=== PATIENT | male | born 1985 | race African-American/Black ===

== ENCOUNTER 2017-07-03 11:01 | Emergency (ER) | payer SELFPAY ==
--- NOTE | 2017-07-03 12:53 | RAD ---
Indication: Rib injury. 4 views of the right ribs and PA views of the chest demonstrate no fracture. No pneumothorax is noted. IMPRESSION: No fracture of the right ribs is noted.
[2017-07-03 13:18] VITALS: BP 122/74
--- NOTE | 2017-07-03 13:24 | UC ---
Minor Trauma HPI - HPI Summary HPI Summary: Patient presents with complaints of right rib pain s/p traumatic injury that he reports occurred at work on 06/29/17 during a restraint. He states he felt a popping sensation at the time in the right lower ribs, and not has some swelling as well. If he flexed upward the bulge reduces, and when he relaxes his abdominal muscles it pops outward. He states the pain is constant was worse with movements, to touch, coughing, or strenuous activity. - History of Current Complaint Chief Complaint: UCGeneralIllness Stated Complaint: R SIDE PAIN Time Seen by Provider: 07/03/17 12:59 Hx Obtained From: Patient Onset/Duration: Sudden Onset, Lasting Days Onset Of Pain: Immediate Severity Initially: Mild Severity Currently: Moderate Pain Intensity: 6 Pain Scale Used: 0-10 Numeric Mechanism Of Injury: Blunt Trauma Aggravating Factor(s): Coughing, Deep Breaths, Movement Alleviating Factor(s): Other: - flexing forward - Risk Factors Penetrating Injury Risk Factors: Negative - Allergies/Home Medications Allergies/Adverse Reactions: Allergies Allergy/AdvReac Type Severity Reaction Status Date / Time No Known Allergies Allergy Verified 07/03/17 11:38 PMH/Surg Hx/FS Hx/Imm Hx Previously Healthy: Yes - Surgical History Surgical History: None - Family History Known Family History: Positive: Cardiac Disease, Hypertension Family History: NON CONTRIBUTORY - Social History Occupation: Employed Full-time Lives: Alone Alcohol Use: Occasionally Substance Use Type: None Smoking Status (MU): Never Smoked Tobacco Review of Systems Constitutional: Negative Skin: Negative Eyes: Negative ENT: Negative Respiratory: Negative Cardiovascular: Negative Gastrointestinal: Negative Genitourinary: Negative Motor: Negative Neurovascular: Negative Musculoskeletal: Myalgia All Other Systems Reviewed And Are Negative: Yes Physical Exam Triage Information Reviewed: Yes Appearance: Well-Appearing Vital Signs: Initial Vital Signs Temp 98.4 F 07/03/17 11:33 Pulse 72 07/03/17 11:33 Resp 18 07/03/17 11:33 BP 100/62 07/03/17 11:33 Pulse Ox 98 07/03/17 11:33 Eye Exam: Normal ENT Exam: Normal Neck exam: Normal Neck: Positive: 1 Respiratory Exam: Normal Cardiovascular Exam: Normal Abdominal Exam: Normal Musculoskeletal: Positive: Edema @ - right eight rib anterior midline. Skin Exam: Normal Minor Trauma Course/Dx - Course Course Of Treatment: Patient presents s/p traumatic injury of the right ribs five days ago, chest and rib xrays were obtained and was negative for fracture or any obvious pneumothorax. He presents clinically with a rib contusion. And I recommend NSAIDS. He was discharged home with no work restrictions, and was in stalbe condition. - Differential Dx/Diagnosis Differential Diagnosis/HQI/PQRI: Contusion(s) Provider Diagnoses: rib contusion Discharge - Discharge Plan Condition: Stable Disposition: HOME Prescriptions: Naproxen Sodium [Naproxen Sodium 220 mg] 220 mg PO BID #30 tab Patient Education Materials: Rib Contusion (ED) Referrals: No Primary Care Phys,NOPCP [Primary Care Provider] -
== END 2017-07-03 13:15 | disposition home or self-care (01) ==
LOC: UCEAST 11:01
DX: S30.1XXA Contusion of abdominal wall, initial encounter (principal); X58.XXXA Exposure to other specified factors, initial encounter; Y92.9 Unspecified place or not applicable; Y99.0 Civilian activity done for income or pay
CPT/HCPCS: 99212; G0463

== ENCOUNTER 2017-09-22 09:25 | Emergency (ER) | payer BC ==
[2017-09-22 09:49] VITALS: BP 132/63
--- NOTE | 2017-09-22 10:57 | UC ---
Upper Extremity HPI - HPI Summary HPI Summary: Pt presents with two complaints 1) Chronic right neck/shoulder pain. He tells me that about 2 years ago he strained his right shoulder/neck area while lifting something at work. When it gets cold outside the muscle will tighten and cause him pain. He remains active and tells me he does 100 pull ups a day without difficulty. Denies headache, numbness, tingling, dizziness, or recent injury. He is quite frustrated because one time "they" made him get an x ray here and it wasn't covered by his insurance and he was forced to pay over $100 out of pocket. He says that he has been seen here for this multiple times and everytime he gets a muscle relaxer that helps, but is unsure of the name. 2) For the past 2 days he has had a ST and a cough. He has not tried anything OTC. Denies fever, chills, sinus symptoms, SOB, chest pain, abdominal pain, N/V/ D/C - History of Current Complaint Chief Complaint: UCUpperExtremity Stated Complaint: SHOULDER PAIN AND COLD Time Seen by Provider: 09/22/17 10:57 Hx Obtained From: Patient Onset/Duration: Gradual Onset Severity Initially: Moderate Severity Currently: Moderate Pain Intensity: 6 Pain Scale Used: 0-10 Numeric Character: Aching Aggravating Factor(s): Movement - Allergies/Home Medications Allergies/Adverse Reactions: Allergies Allergy/AdvReac Type Severity Reaction Status Date / Time No Known Allergies Allergy Verified 09/22/17 09:48 PMH/Surg Hx/FS Hx/Imm Hx Previously Healthy: Yes - Surgical History Surgical History: None - Family History Known Family History: Positive: Cardiac Disease, Hypertension - Social History Occupation: Employed Full-time Lives: With Family Alcohol Use: Occasionally Substance Use Type: None Smoking Status (MU): Never Smoked Tobacco Review of Systems Constitutional: Negative Skin: Negative Eyes: Negative ENT: Sore Throat Respiratory: Cough Cardiovascular: Negative Gastrointestinal: Negative Musculoskeletal: Other: - Right shoulder/neck pain Psychological: Negative All Other Systems Reviewed And Are Negative: Yes Physical Exam Triage Information Reviewed: Yes Appearance: Well-Appearing, No Pain Distress, Well-Nourished Vital Signs: Initial Vital Signs Temp 99.8 F 09/22/17 09:42 Pulse 86 09/22/17 09:42 Resp 16 09/22/17 09:42 BP 132/63 09/22/17 09:42 Pulse Ox 100 09/22/17 09:42 Vital Signs Reviewed: Yes Eyes: Positive: Conjunctiva Clear. Negative: Conjunctiva Inflamed, Discharge ENT: Positive: Hearing grossly normal, Pharynx normal, Pharyngeal erythema, TMs normal, Uvula midline. Negative: Nasal congestion, Nasal drainage, TM bulging, TM dull, TM red, Tonsillar swelling, Tonsillar exudate, Hoarse voice, Sinus tenderness Neck: Positive: Supple, No Lymphadenopathy, Other: - NTTP. FROM. Respiratory: Positive: Chest non-tender, Lungs clear, Normal breath sounds, No respiratory distress, No accessory muscle use Cardiovascular: Positive: RRR, No Murmur, Pulses Normal Musculoskeletal: Positive: Strength Intact, ROM Intact, No Edema, Other: - Right shoulder/neck: Pain along levator muscle is reproduced when he flexes his shoulder against resistance. Negative spurlings. No edema or obvious bony deformities. Negative apleys, apprehension, empty can, villavicencio-jewel, near, o jonh, and yergason tests. Neurological: Positive: Alert, Muscle Tone Normal, Other: - C4-T1 sensations intact b/l. Psychological: Positive: Age Appropriate Behavior Skin: Negative: rashes Upper Extremity Course/Dx - Course Course Of Treatment: Chronic right shoulder/neck pain - likely muscle spasm/ strain. He refuses a workup today beyond a physical exam and does not want to be referred for further investigation. He is demanding his "muscle relaxer" and an antibiotic for his cough. Looking back, I see that he has been given Naproxen each time for this shoulder/neck pain - will rx again and Azithromycin for his cough and ST. - Differential Dx/Diagnosis Differential Diagnosis/HQI/PQRI: Contusion, Fracture (Closed), Strain, Sprain, Other - PNA. Asthma. Pharyngitis. Bronchitis. Muscle spasm Provider Diagnoses: Right shoulder muscle strain. Sore throat. Cough Discharge - Discharge Plan Condition: Stable Disposition: HOME Prescriptions: Azithromycin TAB* [Zithromax TAB (Z-BRIANNA) 250 mg #6 tabs] 2 tab PO .TODAY, THEN 1 DAILY #1 brianna Naproxen [Naproxen EC 500 MG TAB] 500 mg PO BID PRN #30 tab PRN Reason: Pain Patient Education Materials: Muscle Spasm (ED) Forms: *Work Release Referrals: No Primary Care Phys,NOPCP [Primary Care Provider] - Additional Instructions: If you develop a fever, SOB, chest pain, new or worsening symptoms - please call your PCP or go to the ED. Rest your shoulder/neck and apply heat after 48 hours.
== END 2017-09-22 11:16 | disposition home or self-care (01) ==
LOC: UCEAST 09:25
DX: J02.9 Acute pharyngitis, unspecified (principal); R09.82 Postnasal drip; Z88.0 Allergy status to penicillin
CPT/HCPCS: 99212; G0463

== ENCOUNTER 2018-01-18 19:27 | Emergency (ER) | payer BC ==
[2018-01-18] MEDS ORDERED: Ondansetron INJ* 2 MG/ML VIAL IV ONE (19:31)
[2018-01-18] MEDS ORDERED: NS 0.9% 1000 ML* 1,000 ML IV ONE (19:31)
[2018-01-18] MEDS ORDERED: HYDROmorphone INJ* 2 MG/ML CARPUJECT SYRINGE IV SLOW PU ONE (19:31)
--- NOTE | 2018-01-18 19:57 | RAD ---
Indication: Right shoulder injury. Single view of the right shoulder demonstrates presumed inferior dislocation right humeral head. IMPRESSION: Presumed inferior dislocation of the right humeral head.
[2018-01-18] MEDS ORDERED: Midazolam* 1 MG/ML 5 ML VIAL (5 MG) SLOW PUSH ONE (20:04)
[2018-01-18] MEDS ORDERED: fentaNYL* 50 MCG/ML 2 ML VIAL (100 MCG VIAL) IV SLOW PU ONE (20:04)
--- NOTE | 2018-01-18 21:23 | RAD ---
Indication: Right shoulder pain. 3 views of the right shoulder demonstrates no fracture. No other bone or joint abnormality is identified. Previously identified dislocation has been reduced. IMPRESSION: Reduction of previously identified dislocation of the humeral head. The humeral head is now in anatomic location.
--- NOTE | 2018-01-18 21:47 | ED ---
Domo Cartwright Stephanie, scribed for Breonna Alvauel on 01/18/18 at 1947 . Upper Extremity Pain - HPI Summary HPI Summary: The pt is a 32 y/o M presenting to the ED with c/o R shoulder pain that occurred earlier today. The pt was wrestling and was in the process of falling when he used his R arm to break his fall. - History of Current Complaint Stated Complaint: RT SHOULDER INJURY Time Seen by Provider: 01/18/18 19:30 Hx Obtained From: Patient Mechanism Of Injury: Fall From A Standing Position Onset/Duration: Started Minutes Ago Timing: Constant Severity Initially: Severe Severity Currently: Severe Aggravating Factor(s): Movement Alleviating Factor(s): Nothing - Allergies/Home Medications Allergies/Adverse Reactions: Allergies Allergy/AdvReac Type Severity Reaction Status Date / Time No Known Allergies Allergy Verified 01/18/18 20:05 PMH/Surg Hx/FS Hx/Imm Hx Endocrine/Hematology History: Denies: Hx Diabetes, Hx Thyroid Disease Cardiovascular History: Denies: Hx Hypertension Respiratory History: Denies: Hx Asthma, Hx Chronic Obstructive Pulmonary Disease (COPD) GI History: Denies: Hx Ulcer Sensory History: Denies: Hx Legally Blind - Surgical History Surgery Procedure, Year, and Place: NONE Infectious Disease History: Reports: History Other Infectious Disease - Herpes Denies: Hx Hepatitis, Hx Human Immunodeficiency Virus (HIV) - Family History Known Family History: Positive: Cardiac Disease, Hypertension Family History: NON CONTRIBUTORY - Social History Occupation: Employed Full-time Lives: With Family Alcohol Use: Occasionally Hx Substance Use: No Substance Use Type: Reports: None Hx Tobacco Use: No Smoking Status (MU): Never Smoked Tobacco Have You Smoked in the Last Year: No Review of Systems Negative: Fever Positive: Other - R shoulder pain Negative: Slurred Speech All Other Systems Reviewed And Are Negative: Yes Physical Exam - Summary Physical Exam Summary: Appearance: Well appearing, no pain distress Skin: warm, dry, reflects adequate perfusion Head/face: normal Eyes: EOMI, DAYNA ENT: normal Neck: supple, non-tender Respiratory: CTA, breath sounds present Cardiovascular: RRR, pulses symmetrical Abdomen: non-tender, soft Bowel: present Musculoskeletal: tenderness in R shoulder, no neurovascular deficit Neuro: normal, sensory motor intact, A&Ox3 Triage Information Reviewed: Yes Vital Signs On Initial Exam: Initial Vitals Resp 23 01/18/18 19:53 Vital Signs Reviewed: Yes Procedures - Procedure Summary Procedure Summary: Conscious sedation: Pt had R shoulder dislocation. Pt given 5 mg versed and 50 mg of fentanyl IV for conscious sedation and reduced the R shoulder. Pt tolerated well. No complications. Pt back to nml mentation. Pt will be observed for 2 hrs. - Joint Reduction Joint Reduction Site: shoulder (R) Conscious Sedation: Yes Pre-Procedure NV Exam: Yes Post Joint Reduction Film: joint reduced - No complication, No NV deficit Diagnostics - Vital Signs Vital Signs Temp Pulse Resp BP Pulse Ox 01/18/18 21:27 143/67 01/18/18 20:04 99.4 F 64 15 127/66 99 01/18/18 19:53 23 - Laboratory Lab Statement: Any lab studies that have been ordered have been reviewed, and results considered in the medical decision making process. - Radiology Shoulder XRay Xray Interpretation: Positive (See Comments) Radiology Interpretation Completed By: Radiologist - Presumed inferior dislocation of the right humeral head. ED physician has reviewed this report. Re-Evaluation - Re-Evaluation First Eval Re-Evaluation Time: 21:15 Change: Improved - The pt is feeling better s/p R shoulder joint reduction. ED physician discussed plan of discharge with the pt and the pt agrees. Course/Dx - Course Course Of Treatment: The pt is a 32 y/o M presenting to the ED with c/o R shoulder pain that occurred earlier today. The pt was wrestling and was in the process of falling when he used his R arm to break his fall. The pt's shoulder was reduced to nml mentation and was observed for 2 hours. - Diagnoses Differential Diagnosis/HQI/PQRI: Positive: Contusion, Fracture (Closed), Strain , Other - dislocation rt shoulder Provider Diagnoses: Dislocation of right shoulder joint - Critical Care Time Critical Care Time: 30-74 min Discharge - Sign-Out/Discharge Documenting (check all that apply): Discharge/Admit/Transfer - discharge - Discharge Plan Condition: Stable Disposition: HOME Prescriptions: Ibuprofen TAB* [Motrin TAB* 600 MG] 600 mg PO Q8H PRN #20 tab MDD 3 PRN Reason: Pain Patient Education Materials: Shoulder Dislocation Exercises (GEN), Shoulder Dislocation (ED) Referrals: Itz Thornton MD [Medical Doctor] - 2 Days Additional Instructions: Return to ED for any new or worsening symptoms. - Billing Disposition and Condition Condition: STABLE Disposition: HOME The documentation as recorded by the Domo soto Stephanie accurately reflects the service I personally performed and the decisions made by Artie epstein Emmanuel.
[2018-01-18 22:47] VITALS: BP 116/49
== END 2018-01-18 22:45 | disposition home or self-care (01) ==
LOC: ED 19:27
DX: S43.004A Unspecified dislocation of right shoulder joint, initial encounter (principal); M25.511 Pain in right shoulder; W19.XXXA Unspecified fall, initial encounter; Y93.72 Activity, wrestling; Y92.9 Unspecified place or not applicable
CPT/HCPCS: 96374; 96375; 99283; J1170; J2250; J2405; J3010

== ENCOUNTER 2019-08-20 14:23 | Emergency (ER) | payer SELFPAY ==
[2019-08-20 14:44] VITALS: BP 113/72
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
== END 2019-08-20 15:05 | disposition home or self-care (01) ==
LOC: UCEAST 14:23
DX: S09.90XA Unspecified injury of head, initial encounter (principal); X58.XXXA Exposure to other specified factors, initial encounter; Y92.9 Unspecified place or not applicable
CPT/HCPCS: 99211; G0463